=== PATIENT | male | born 1980 | race American Indian/Alaskan Native ===

== ENCOUNTER 2018-11-21 20:30 | Emergency (ER) | payer OTHER ==
--- NOTE | 2018-11-21 20:38 | Emergency Department Report ---
Blank Doc - Documentation Documentation: This is a 37-year-old male that present with midsternum chest pain. Patient s tated is intermittent x1 day. Denies any radiation of pain. Denies any SOB. This initial assessment/diagnostic orders/clinical plan/treatment(s) is/are subject to change based on patient's health status, clinical progression and re- assessment by fellow clinical providers in the ED. Further treatment and workup at subsequent clinical providers discretion. Patient/guardians urged not to elope from the ED as their condition may be serious if not clinically assessed and managed. Initial orders include: 1- Patient sent to [facility] for further evaluation and treatment 2- EKG 3- Labs 4- CXR
[2018-11-21 21:34] LABS: Basophils # (Auto) 0.1 K/mm3 (0.0-0.1); Basophils % (Auto) 1.2 % (0.0-1.8); Eosinophils # (Auto) 0.4 K/mm3 (0.0-0.4); Eosinophils % (Auto) 5.3 % (0.0-4.3); Hematocrit 40.3 % (35.5-45.6); Hemoglobin 14.4 gm/dl (11.8-15.2); Lymphocytes # (Auto) 2.8 K/mm3 (1.2-5.4); Lymphocytes % (Auto) 36.8 % (13.4-35.0); Mean Corpuscular HGB Conc 36 % (32-34); Mean Corpuscular Volume 79 fl (84-94); Monocytes # (Auto) 0.5 K/mm3 (0.0-0.8); Monocytes % (Auto) 6.9 % (0.0-7.3); Platelet Count 337 K/mm3 (140-440); Red Blood Count 5.09 M/mm3 (3.65-5.03); Red Cell Distribution Width 13.3 % (13.2-15.2)
--- NOTE | 2018-11-21 21:34 | XRay Report ---
PROCEDURE: Chest. TECHNIQUE: PA and lateral views. HISTORY: Chest pain. COMPARISONS: None. FINDINGS: The heart and mediastinum appear normal. The lungs are clear and well expanded. There are no pleural effusions. The soft tissues and regional skeleton are unremarkable. IMPRESSION: Normal study. This document is electronically signed by Pierre Neumann MD., November 21 2018 09:31:49 PM ET
[2018-11-21 21:50] LABS: BUN/Creatinine Ratio 13; Blood Urea Nitrogen 16 mg/dL (9-20); Calcium 9.5 mg/dL (8.4-10.2); Hemolysis Index 9
[2018-11-21] MEDS ORDERED: TORADOL IM ONE (23:03)
[2018-11-21 23:17] VITALS: BP 120/79
--- NOTE | 2018-11-21 23:31 | Emergency Department Report ---
ED Chest Pain HPI - General Chief Complaint: Chest Pain Stated Complaint: CHEST PAIN Time Seen by Provider: 11/21/18 20:37 Source: patient Mode of arrival: Ambulatory Limitations: No Limitations - History of Present Illness Initial Comments: Pt is 37 yo male who presents to the ED with c/o left sided CP for that began yesterday. He states it hurts to take a deep breath. He denies any SOB, LE edema, N/V, radiation of the pain, numbness, tingling, or any other symptoms. The patient states he does lift heavy boxes frequently at work. 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 He denies any PMHx. MD Complaint: chest pain Onset/Timin -: days(s) (worse deep breath ) Pain Location: left chest Pain Radiation: none Severity: moderate Severity scale (0 -10): 10 Quality: sharp Consistency: constant Worsens With: inspiration re: denies: nausea, vomting, diaphoresis, dyspnea, sense of impending doom Other Symptoms: denies: cough, fever, syncope, rash, acid taste in mouth, leg swelling, palpitations, burping Treatments Prior to Arrival: none Aspirin use within the Past 7 Days: (0) No - Related Data Previous Rx's Medication Instructions Recorded Last Taken Type Cyclobenzaprine HCl [Flexeril 5 MG 5 mg PO HS #7 tablet 11/22/18 Unknown Rx TAB] Ibuprofen 800 mg PO Q6HR #30 tablet 11/22/18 Unknown Rx Allergies Allergy/AdvReac Type Severity Reaction Status Date / Time No Known Allergies Allergy Unverified 11/21/18 20:40 Heart Score - HEART Score History: Slightly suspicious EKG: Normal Age: < 45 Risk factors: No known risk factors Troponin: < normal limit HEART Score: 0 ED Review of Systems ROS: Stated complaint: CHEST PAIN Other details as noted in HPI Comment: All other systems reviewed and negative ED Past Medical Hx - Past Medical History Previous Medical History?: No - Surgical History Past Surgical History?: No - Social History Smoking Status: Never Smoker Substance Use Type: Alcohol - Medications Home Medications: Home Medications Medication Instructions Recorded Confirmed Last Taken Type Cyclobenzaprine HCl [Flexeril 5 MG 5 mg PO HS #7 tablet 11/22/18 Unknown Rx TAB] Ibuprofen 800 mg PO Q6HR #30 tablet 11/22/18 Unknown Rx ED Physical Exam - General Limitations: No Limitations General appearance: alert, in no apparent distress - Head Head exam: Present: atraumatic, normocephalic - Eye Eye exam: Present: normal appearance - ENT ENT exam: Present: mucous membranes moist - Neck Neck exam: Present: normal inspection - Respiratory Respiratory exam: Present: normal lung sounds bilaterally, chest wall tenderness. Absent: respiratory distress, wheezes, rales, rhonchi, stridor, accessory muscle use, decreased breath sounds, prolonged expiratory (left anterior chest wall pain to palpation ) - Cardiovascular Cardiovascular Exam: Present: regular rate, normal rhythm, normal heart sounds. Absent: systolic murmur, diastolic murmur, rubs, gallop - GI/Abdominal GI/Abdominal exam: Present: soft. Absent: distended, tenderness - Extremities Exam Extremities exam: Present: other (no LE edema ) - Neurological Exam Neurological exam: Present: alert, oriented X3 - Psychiatric Psychiatric exam: Present: normal affect, normal mood - Skin Skin exam: Present: warm, dry, intact ED Course Vital Signs 11/21/18 11/21/18 11/21/18 20:37 23:12 23:16 Temperature 99.3 F 98.6 F Pulse Rate 84 81 Respiratory 20 18 18 Rate Blood Pressure 123/79 Blood Pressure 120/79 [Right] O2 Sat by Pulse 98 97 Oximetry 11/21/18 23:46 Temperature Pulse Rate Respiratory 16 Rate Blood Pressure Blood Pressure [Right] O2 Sat by Pulse Oximetry SAVANA score - Savana Score Age > 65: (0) No Aspirin use within the Past 7 Days: (0) No 3 or more CAD Risk Factors: (0) No 2 or more Angina events in past 24 hrs: (1) Yes Known CAD with more than 50% Stenosis: (0) No Elevated Cardiac Markers: (0) No ST Deviation Greater than 0.5mm: (0) No SAVANA Score: 1 ED Medical Decision Making - Lab Data Result diagrams: 11/21/18 21:04 11/21/18 21:04 - EKG Data -: EKG Interpreted by Me EKG shows normal: sinus rhythm, axis, intervals, QRS complexes, ST-T waves Rate: normal - Radiology Data Radiology results: report reviewed, image reviewed CXR no acute process - Medical Decision Making Pt presents with left side CP worse with movements and TTP of the anterior chest wall. EKG is normal, CXR with no acute process, d-dimer is negative. Appears to be musculosketal in nature. Does not appear to be cardiac in nature. Will give anti-inflammatory and short course of muscle relaxers. Advised pt to only take muscle relaxer at night and to night drive on it. Advised to follow up with PCP in the next couple of days. Discussed return to ED if new or worsening sx. Critical care attestation.: If time is entered above; I have spent that time in minutes in the direct care of this critically ill patient, excluding procedure time. ED Disposition Clinical Impression: Costochondritis, acute Disposition: [id number] TO HOME OR SELFCARE Is pt being admited?: No Does the pt Need Aspirin: No Condition: Stable Instructions: Costochondritis (ED) Additional Instructions: Follow up with primary care doctor in the next couple of days. Do not drive while taking muscle relaxer. Return to the emergency room if new or worsening symptoms. Prescriptions: Cyclobenzaprine HCl [Flexeril 5 MG TAB] 5 mg PO HS #7 tablet Ibuprofen 800 mg PO Q6HR #30 tablet Referrals: JEFRY MARTINEZ MD [Primary Care Provider] - 3-5 Days Time of Disposition: 00:52 Print Language: CZECH
== END 2018-11-22 01:01 | disposition home or self-care (01) ==
LOC: ED 20:30
DX: M94.0 Chondrocostal junction syndrome [Tietze] (principal)
CPT/HCPCS: 36415; 71046; 80048; 84484; 85025; 85379; 93005; 93010; 96372; 99284; J1885